=== PATIENT | female | born 1975 | race Caucasian/White ===

== ENCOUNTER 2016-10-23 12:58 | Emergency (ER) | payer OTHER ==
[2016-10-23 13:09] VITALS: BP 131/73
--- NOTE | 2016-10-23 14:03 | UC ---
Skin Complaint HPI - HPI Summary HPI Summary: Patient presents with complaints of rash x 3 day that began on her right arm, and then spread to her face and neck. She states the rash is itchy. She denies any difficulty breathing, speaking or swallowing. She denies any vesicle, or painful lesion, new medications, soaps, foods or travel. She states that something similar happened last year as well. - History of Current Complaint Hx Obtained From: Patient Hx Last Menstrual Period: 10/19/16 ?: No Onset/Duration: Gradual Onset Skin Exposure Onset/Duration: Days Ago Onset Severity: Mild Current Severity: Mild Location: Discrete - right side of neck, cheeks, eyes. Aggravating: Touch Alleviating: Antihistamines Associated Signs & Symptoms: Positive: Negative Similar Episode/Dx as: allergic dermatitis <Diana Jaffe - Last Filed: 10/23/16 13:58> <Lenora Greenberg - Last Filed: 10/23/16 14:12> - History of Current Complaint Chief Complaint: UCSkin Time Seen by Provider: 10/23/16 13:45 Stated Complaint: RASH - Allergy/Home Medications Allergies/Adverse Reactions: Allergies Allergy/AdvReac Type Severity Reaction Status Date / Time Pseudoephedrine Allergy Severe ELEVATED Verified 11/05/15 08:23 [From Sudafed] BP, FEELS HYPER Review of Systems Skin: Rash All Other Systems Reviewed And Are Negative: Yes <Diana Jaffe - Last Filed: 10/23/16 13:58> PMH/Surg Hx/FS Hx/Imm Hx Previously Healthy: Yes - Surgical History Surgical History: Yes Surgery Procedure, Year, and Place: 2007 uterine fibroid - Family History Known Family History: Positive: None - Social History Alcohol Use: Occasionally Substance Use Type: None Smoking Status (MU): Never Smoked Tobacco <Diana Jaffe - Last Filed: 10/23/16 13:58> Physical Exam Triage Information Reviewed: Yes Appearance: Well-Appearing Vital Signs: Initial Vital Signs Temp 99 F 10/23/16 13:06 Pulse 67 10/23/16 13:06 Resp 17 10/23/16 13:06 BP 131/73 10/23/16 13:06 Pulse Ox 100 10/23/16 13:06 Vital Signs Reviewed: Yes Eye Exam: Normal ENT Exam: Normal Neck exam: Normal Respiratory Exam: Normal Cardiovascular Exam: Normal Abdominal Exam: Normal Musculoskeletal Exam: Normal Skin Exam: Other - pruritic erythmic raised irregular shaped area of right side of neck, both cheeks, and periorbit area. <Diana Jaffe - Last Filed: 10/23/16 13:58> Vital Signs: Initial Vital Signs Temp 99 F 10/23/16 13:06 Pulse 67 10/23/16 13:06 Resp 17 10/23/16 13:06 BP 131/73 10/23/16 13:06 Pulse Ox 100 10/23/16 13:06 <Lenora Greenberg - Last Filed: 10/23/16 14:12> Course/Dx - Course Course Of Treatment: Patient presents with a new onset rash of eyes, cheeks, and right side of neck that presents clinically as allergic dermatitis, source unknow but most logically due to environmental allergies. Airway is patent, and there is no evidence of distress. She is going to be treated with claritin, pepcid, and a medrol dose pack. also topically benedry gel can be used on the right side of her neck. If her symtpoms do not impove I have referred her to an line up examiner. At the time of discharge the patient was hemodynically stalbe, with normal vs and was afebrile. - Differential Diagnoses - Skin Complaint Differential Diagnoses: Other - allergic dermatitis - Diagnoses Provider Diagnoses: allergic dermatitis <LdDianakatya Juarez - Last Filed: 10/23/16 13:58> Discharge <JaffeDiana - Last Filed: 10/23/16 13:58> <Lenora Greenberg - Last Filed: 10/23/16 14:12> - Discharge Plan Condition: Stable Disposition: HOME Prescriptions: Famotidine TAB* [Pepcid 20 MG TAB*] 20 mg PO BID #14 tab Methylprednisolone [Medrol Dosepak 4 MG*] 0 mg PO .SEE KATHERIN INSTRUCTION #1 tab Patient Education Materials: Acute Rash (ED), Allergies (ED) Referrals: Tio Arboleda MD [Medical Doctor] - Devon Lemus MD [Primary Care Provider] - Attestation Statement User Type: Provider - I was available for consult. This patient was seen by the B[facility]. The patient was not presented to, seen by, or examined by me. -Kala <Lenora Greenberg - Last Filed: 10/23/16 14:12>
== END 2016-10-23 14:00 | disposition home or self-care (01) ==
LOC: UCEAST 12:58
DX: L23.9 Allergic contact dermatitis, unspecified cause (principal)
CPT/HCPCS: 99212; G0463

== ENCOUNTER 2018-12-11 11:03 | Emergency (ER) | payer OTHER ==
[2018-12-11 11:19] VITALS: BP 121/83
--- NOTE | 2018-12-11 11:38 | UC ---
Allergic Reaction HPI - HPI Summary HPI Summary: 43-year-old female presents with complaints of right eye swelling and rash to the right side of her face and bilateral arms. States approximately 2 years ago she started having cyclic episodes of this by swelling and rash. Her flareups tend to be worse during the summer months. She has been seen by an tankroom tender however they have not been able to determine the exact cause. States she started having another flareup about 5 days ago and been trying to manage with her antihistamines that are prescribed for her. States the eye swelling has improved however the rash has been persistent and worsened little over the last couple of days. She has had 2 take tapering doses of prednisone the past in order to treat her flareups. She does note that she has some mild shortness of breath at times with her flareups and uses an albuterol inhaler as needed. She last used this last evening. Denies fever, chills, swelling of the lips, tongue, or throat, or wheezing. - History of Current Complaint Chief Complaint: UCRash Stated Complaint: RASH Time Seen by Provider: 12/11/18 11:16 Hx Obtained From: Patient Hx Last Menstrual Period: 12/04/18 Pain Intensity: 0 - Allergies/Home Medications Allergies/Adverse Reactions: Allergies Allergy/AdvReac Type Severity Reaction Status Date / Time amitriptyline Allergy Swelling Verified 12/11/18 11:09 Of Face,Lips,& Throat pseudoephedrine Allergy Tachycardia Verified 12/11/18 11:09 Home Medications: Home Medications Albuterol HFA INHALER* [Ventolin HFA Inhaler*] 2 puff INH Q4H PRN 12/11/18 [ History Confirmed 12/11/18] Cetirizine* [ZyrTEC 10 MG TAB*] 10 mg PO DAILY 12/11/18 [History Confirmed 12/11] Fexofenadine/Pseudoephedrine [Stacey-D 24 Hour Tablet] 1 each PO DAILY [History Confirmed 12/11/18] Loratadine [Claritin 10 MG CAP] 10 mg PO DAILY 12/11/18 [History Confirmed 12/11] PMH/Surg Hx/FS Hx/Imm Hx Previously Healthy: Yes - Surgical History Surgical History: Yes Surgery Procedure, Year, and Place: 2007 uterine fibroid - Family History Known Family History: Positive: Non-Contributory - Social History Occupation: Employed Full-time Lives: With Family Alcohol Use: Occasionally Substance Use Type: None Smoking Status (MU): Never Smoked Tobacco Review of Systems All Other Systems Reviewed And Are Negative: Yes Constitutional: Negative: Fever, Chills Skin: Positive: Rash - See HPI Eyes: Negative: Blurred Vision, Diplopia, Drainage, Eye Redness, Photophobia ENT: Negative: Sore Throat, Ear Ache, Nasal Discharge, Sinus Congestion, Sinus Pain/Tenderness Respiratory: Positive: Shortness Of Breath. Negative: Cough Cardiovascular: Negative: Palpitations, Chest Pain Gastrointestinal: Negative: Abdominal Pain, Vomiting, Diarrhea, Nausea Genitourinary: Positive: Negative Musculoskeletal: Positive: Negative Neurological: Positive: Negative Is Patient Immunocompromised?: No Physical Exam - Summary Physical Exam Summary: GENERAL APPEARANCE: Well developed, well nourished, alert and cooperative, and appears to be in no acute distress. EYES: Eyelids normal. Conjunctiva clear. No drainage. THROAT: No swelling of the lips or tongue. Pharynx normal. No tonsilar inflammation, swelling, exudate, or lesions. Uvula midline. Airway patent. NECK: Neck supple, non-tender without lymphadenopathy. CARDIAC: Normal S1 and S2. No S3, S4 or murmurs. Rhythm is regular. There is no peripheral edema, cyanosis or pallor. Extremities are warm and well perfused. Capillary refill is less than 2 seconds. Peripheral pulses intact. LUNGS: Clear to auscultation without rales, rhonchi, wheezing or diminished breath sounds. ABDOMEN: Positive bowel sounds. Soft, nondistended, nontender. No guarding or rebound. No masses or hepatosplenomegally. MUSKULOSKELETAL: ROM intact to all extremities. No joint erythema or tenderness. Normal muscular development. Normal gait. SKIN: Maculopapular erythematous rash noted to the right side of face and to bilateral upper and lower arms. Triage Information Reviewed: Yes Vital Signs: Initial Vital Signs Temp 98.2 F 12/11/18 11:12 Pulse 83 12/11/18 11:12 Resp 18 12/11/18 11:12 BP 121/83 12/11/18 11:12 Pulse Ox 99 12/11/18 11:12 Vital Signs Reviewed: Yes Allergic Reaction Course/Dx - Course Course Of Treatment: 43-year-old female presents with complaints of right eye swelling and rash to the right side of her face and bilateral arms. States approximately 2 years ago she started having cyclic episodes of this by swelling and rash. Her flareups tend to be worse during the summer months. She has been seen by an tankroom tender however they have not been able to determine the exact cause. States she started having another flareup about 5 days ago and been trying to manage with her antihistamines that are prescribed for her. States the eye swelling has improved however the rash has been persistent and worsened little over the last couple of days. She has had 2 take tapering doses of prednisone the past in order to treat her flareups. She does note that she has some mild shortness of breath at times with her flareups and uses an albuterol inhaler as needed. She last used this last evening. Denies fever, chills, swelling of the lips, tongue, or throat, or wheezing. Afebrile. Vital signs stable. Patient had an erythematous maculopapular rash involving the right side of her face and bilateral upper and lower arms and otherwise unremarkable exam. Based on her history we will start her on a tapering dose of prednisone, have her continue with her antihistamine regimen, and have her follow up with her primary care provider in 5-7 days for recheck of symptoms. Anticipatory guidance and warning symptoms were reviewed with the patient. Verbalizes understanding and agrees with plan of care. - Differential Dx/Diagnosis Differential Diagnosis/HQI/PQRI: Anaphylaxis, Urticaria Provider Diagnosis: Allergic reaction Discharge - Sign-Out/Discharge Documenting (check all that apply): Patient Departure All imaging exams completed and their final reports reviewed: No Studies - Discharge Plan Condition: Stable Disposition: HOME Prescriptions: predniSONE TAB* [Deltasone 10 MG TAB*] 10 mg PO DAILY #30 tab Patient Education Materials: General Allergic Reaction (ED) Referrals: Mane Falcon NP [Primary Care Provider] - 5 Days Additional Instructions: Start the prednisone taper. Take 4 tablets by mouth once a day for 3 days, then 3 tablets once a day for 3 days, then 2 tablets once a day for 3 days then 1 tablet once a day for 3 days then stop. Continue your antihistamine regimen has directed. Follow-up with your primary care provider in 5-7 days for recheck of symptoms. Seek immediate medical attention in the emergency room if you develop swelling of the lips, tongue, throat, have difficulty breathing, or have any worsening of symptoms. - Billing Disposition and Condition Condition: STABLE Disposition: Home
== END 2018-12-11 11:44 | disposition home or self-care (01) ==
LOC: UCEAST 11:03
DX: T78.40XA Allergy, unspecified, initial encounter (principal); X58.XXXA Exposure to other specified factors, initial encounter
CPT/HCPCS: 99212; G0463